=== PATIENT | male | born 1980 | race Caucasian/White ===

== ENCOUNTER → 2017-01-30 | Outpatient (CLI) | payer OTHER ==
--- NOTE | 2017-01-30 10:59 | US ---
EXAMINATION TYPE: US abdomen complete DATE OF EXAM: 01/30/2017 COMPARISON: 10/31/2016 CLINICAL HISTORY: 36-year-old male R10.84 Abdominal Pain. TECHNIQUE: Multiple sonographic images of the abdomen are obtained. FINDINGS: Liver Length: 13.5 cm Gallbladder: Surgically absent CBD: 0.40 cm Spleen: 11.7 cm Right Kidney: 9.2 x 4.8 x 4.2 cm Left Kidney: 10.3 x 5.1 x 4.1 cm Pancreas: Only a portion of the pancreatic body is seen. Remainder suboptimally visualized secondary to shadowing from bowel gas. Liver: Slightly echogenic. Gallbladder: Surgically absent: CBD: wnl Spleen: wnl Right Kidney: No hydronephrosis. Left Kidney: No hydronephrosis. Upper IVC: Not well seen Abd Aorta: wnl IMPRESSION: 1. Status post cholecystectomy. No biliary ductal dilatation. 2. Slight echogenic appearance to the liver could represent mild fatty infiltration.
== END | disposition home or self-care (01) ==
LOC: RADUSWWP 09:14
PROVIDERS: ATTEND Internal Medicine
DX: R10.84 Generalized abdominal pain (principal); Z90.49 Acquired absence of other specified parts of digestive tract
CPT/HCPCS: 76700

== ENCOUNTER 2019-06-25 15:48 | Emergency (ER) | payer OTHER ==
[2019-06-25 15:59] VITALS: BP 113/67; PULSE 78; RESP 18; TEMP 98.1
[2019-06-25] MEDS ORDERED: HYDROcodone/APAP 5-325MG 1 EACH TAB PO STA (16:22)
--- NOTE | 2019-06-25 16:40 | XR ---
EXAMINATION TYPE: XR lumbar spine 2 or 3V DATE OF EXAM: 06/25/2019 COMPARISON: NONE HISTORY: Back pain TECHNIQUE: 3 views FINDINGS: Lumbar vertebra have normal spacing and alignment. Posterior elements are intact. Sacroilia c joints appear normal. IMPRESSION: Normal lumbar spine exam.
[2019-06-25 16:45] LABS: Appearance,Urine Cloudy (Clear); Bilirubin,Urine Negative (Negative); Blood,Urine Trace (Negative); Color,Urine Yellow; Glucose,Urine (UA) Negative (Negative); Ketones,Urine Negative (Negative); Leukocyte Esterase,Urine Trace (Negative); Mucus,Urine Many /hpf; Nitrite,Urine Negative (Negative); PH, Urine 6.5 (5.0-8.0); Protein,Urine Trace (Negative); RBC,Urine 5 /hpf (0-5); Specific Gravity,Urine 1.023 (1.001-1.035); Squamous Epithelial Cell,Urine 1 /hpf (0-4); Urobilinogen,Urine <2.0 mg/dL (<2.0)
[2019-06-25] MEDS ORDERED: KETOROLAC 60 MG/2 ML VIAL IM STA (17:06)
[2019-06-25] MEDS ORDERED: ACET/COD 300 MG/30 MG STARTER PACK 6 TAB BTL PO STA (17:41)
[2019-06-25] MEDS ORDERED: CYCLOBENZAPRINE 10MG STARTER 3 TAB BTL PO STA (17:41)
--- NOTE | 2019-06-25 17:41 | ED ---
General Adult HPI - General Chief complaint: Back Pain/Injury Stated complaint: Hip pain Time Seen by Provider: 06/25/19 16:02 Source: patient, RN notes reviewed, old records reviewed Mode of arrival: wheelchair Limitations: language barrier - History of Present Illness Initial comments: 38-year-old male patient presents to ED chief complaint of left paralumbar back pain. Patient was the pain began yesterday. Reports that the pain is positional. Denies any recent falls or trauma. Reports it is a sharp pain. Denies any paresthesias. Denies any red flag symptoms. Urinating at baseline. Patient is ambulatory. Denies any other complaints. Systemic: Pt denies fatigue, fever/chills, rash. Pt denies weakness, night sweats, weight loss. Neuro: Pt denies headache, visual disturbances, syncope or pre-syncope. HEENT: Pt denies ocular discharge or irritation, otalgia, rhinorrhea, pharyngitis or notable lymphadenopathy. Cardiopulmonary: Pt denies chest pain, SOB, heart palpitations, dyspnea on exertion. Abdominal/GI: Pt denies abdominal pain, n/v/d. : Pt denies dysuria, burning w/ urination, frequency/urgency. Denies new onset urinary or bowel incontinence. MSK: Pt denies myalgia, loss of strength or function in extremities. Neuro: Pt denies new onset weakness, paresthesias. - Related Data Home Medications Medication Instructions Recorded Confirmed Ibuprofen [Advil] 200 mg PO Q6H PRN 07/27/16 07/27/16 Ibuprofen [Motrin] 400 mg PO TID PRN 10/31/16 11/01/16 Naproxen Sodium [Aleve] 440 mg PO BID PRN 10/31/16 11/01/16 Previous Rx's Medication Instructions Recorded Cyclobenzaprine [Flexeril] 10 mg PO TID #20 tab 07/27/16 Ibuprofen [Motrin] 600 mg PO Q6HR PRN #40 day 07/27/16 Hydrocodone/Acetaminophen [[place] 1 - 2 each PO Q6HR PRN #20 tab 11/01/16 5-325] HYDROcodone/APAP 5-325MG [[place] 1 each PO Q4HR PRN #0 tab 11/02/16 5-325] Allergies Allergy/AdvReac Type Severity Reaction Status Date / Time No Known Allergies Allergy Verified 06/25/19 15:59 Review of Systems ROS Statement: Those systems with pertinent positive or pertinent negative responses have been documented in the HPI. ROS Other: All systems not noted in ROS Statement are negative. Past Medical History Past Medical History: No Reported History Additional Past Medical History / Comment(s): the only things that he c/o of "headaches" neck pain and "problems with his stomach,sometimes if he eats spicy food he vomits" History of Any Multi-Drug Resistant Organisms: None Reported Past Surgical History: No Surgical Hx Reported Additional Past Surgical History / Comment(s): rt eye sx had a" problem with his retina" Past Anesthesia/Blood Transfusion Reactions: No Reported Reaction Past Psychological History: No Psychological Hx Reported Smoking Status: Former smoker Past Alcohol Use History: None Reported Past Drug Use History: None Reported - Past Family History Mother Additional Family Medical History / Comment(s): Father Family Medical History: Diabetes Mellitus, Hyperlipidemia, Hypertension General Exam - General Exam Comments Initial Comments: Constitutional: NAD, AOX3, Pt has pleasant affect. HEENT: NC/AT, trachea midline, neck supple, no lymphadenopathy. Posterior pharynx non erythematous, without exudates. External ears appear normal, without discharge. Mucous membranes moist. Eyes PERRLA, EOM intact. There is no scleral icterus. No pallor noted. Cardiopulmonary: RRR, no murmurs, rubs or gallops, no JVD noted. Lungs CTAB in anterior and posterior thomson. No peripheral edema. Abdominal exam: Abdomen soft and non-distended. Abdomen non-tender to palpation in all 4 quadrants. Bowel sounds active in LLQ. No hepatosplenomegaly. No ecchymosis Neuro: CN II-XII grossly intact. No nuchal rigidity. No raccon eyes, no felipe sign, no hemotympanum. No cervical spinal tenderness. MSK: Right leg raise negative. Left straight leg raise positive. Left paralumbar region mildly tender. No skin changes. Distal pulses intact and equal. No posterior calf tenderness bilaterally, homans sign negative bilaterally. Posterior tibialis and radial pulse +2 bilaterally. Sensation intact in upper and lower extremities. Full active ROM in upper and lower extremities, 5/5 stregnth. Limitations: language barrier Course Vital Signs 06/25/19 15:55 Temperature 98.1 F Pulse Rate 78 Respiratory 18 Rate Blood Pressure 113/67 O2 Sat by Pulse 96 Oximetry Medical Decision Making - Medical Decision Making 38-year-old male patient presents to ED chief complaint of left paralumbar back pain. Patient was the pain began yesterday. Ports that the pain is positional. Denies any recent falls or trauma. Reports it is a sharp pain. Denies any paresthesias. Denies any red flag symptoms. Urinating at baseline. Patient is ambulatory. Denies any other complaints. Patient vital signs stable, afebrile. Physical exam displayed left paralumbar region mildly tender. Left straight leg raise positive. UA will be rechecked by PCP. Lumbar film is negative. Patient feeling much improved with Toradol, [place]. Patient be discharged with muscle relaxers. Will follow-up with primary care provider and orthopedic consult symptoms persist. Case discussed with Dr. Rey. - Lab Data Lab Results 06/25/19 Range/Units 16:37 Urine Color Yellow Urine Appearance Cloudy (Clear) Urine pH 6.5 (5.0-8.0) Ur Specific [place] 1.023 (1.001-1.035) Urine Protein Trace H (Negative) Urine Glucose (UA) Negative (Negative) Urine Ketones Negative (Negative) Urine Blood Trace H (Negative) Urine Nitrite Negative (Negative) Urine Bilirubin Negative (Negative) Urine Urobilinogen <2.0 (<2.0) mg/dL Ur Leukocyte Esterase Trace H (Negative) Urine RBC 5 (0-5) /hpf Urine WBC 4 (0-5) /hpf Ur Squamous Epith Cells 1 (0-4) /hpf Urine Mucus Many H (None) /hpf Disposition Clinical Impression: Lumbar back pain Disposition: HOME SELF-CARE Condition: Stable Instructions (If sedation given, give patient instructions): Acute Low Back Pain (ED) Additional Instructions: Follow-up with primary care provider tomorrow. Follow up with orthopedic consult if symptoms persist. Return to ER if condition worsens. Is patient prescribed a controlled substance at d/c from ED?: No Referrals: Danielle Cardenas MD [Primary Care Provider] - 1-2 days Nico De Los Santos MD [STAFF PHYSICIAN] - 1-2 days
== END 2019-06-25 17:55 | disposition home or self-care (01) ==
LOC: EC 15:48
DX: M54.5 Low back pain (principal); Z87.891 Personal history of nicotine dependence
CPT/HCPCS: 81001; 72100; 99284; 96372; J1885